=== PATIENT | male | born 1960 | race Caucasian/White ===

== ENCOUNTER 2017-09-22 17:05 | Emergency (ER) | payer OTHER ==
[~2017-09-22] VITALS: Ht 172.7 cm; Wt 75.0 kg
[2017-09-22 17:26] VITALS: BP 189/91; PULSE 83; RESP 18; TEMP 98.4
[2017-09-22] MEDS ORDERED: LOVA10TA PO (18:16)
[2017-09-22] MEDS ORDERED: CARV6.252 PO (18:16)
[2017-09-22] MEDS ORDERED: METF500T PO (18:16)
[2017-09-22] MEDS ORDERED: BUSP15TA PO (18:16)
[2017-09-22] MEDS ORDERED: SERT-129 PO (18:16)
[2017-09-22 18:51] LABS: AUTOMATED NEUTROPHIL # 3.7 TH/MM3 (1.8-7.7); BASOPHIL % 0.5 % (0.0-2.0); EOSINOPHIL # 0.1 TH/MM3 (0-0.4); EOSINOPHIL % 1.7 % (0.0-4.0); HEMATOCRIT 40.6 % (39.0-51.0); HEMOGLOBIN 13.9 GM/DL (13.0-17.0); LYMPH % 26.2 % (9.0-44.0); LYMPHOCYTE # 1.5 TH/MM3 (1.0-4.8); MEAN CELL VOLUME 80.1 FL (80.0-100.0); MEAN CORPUSCULAR HEMOGLOBIN 27.4 PG (27.0-34.0); MEAN CORPUSCULAR HGB CONC 34.1 % (32.0-36.0); MEAN PLATELET VOLUME 7.2 FL (7.0-11.0); MONO % 7.9 % (0.0-8.0); MONOCYTE # 0.5 TH/MM3 (0-0.9); NEUT % 63.7 % (16.0-70.0); PLATELET COUNT 200 TH/MM3 (150-450); RED BLOOD COUNT 5.07 MIL/MM3 (4.50-5.90); RED CELL DISTRIBUTION WIDTH 14.5 % (11.6-17.2); WHITE BLOOD COUNT 5.8 TH/MM3 (4.0-11.0)
--- NOTE | 2017-09-22 18:51 | PD ---
HPI Chief Complaint: Neuro Symptoms/ Deficits Time Seen by Provider: 18:07 Travel History International Travel<30 days: No Contact w/Intl Traveler<30days: No Traveled to known affect area: No History of Present Illness HPI Patient is a 56-year-old male presenting to the emergency department for evaluation of swollen lymph nodes. Patient states his lymph nodes have been swollen all over his body for the last week. He reports feeling nauseous today. He states he went to [facility] in [place] on September 16, he had a CT scan performed and states the embolization material is leaking into his scalp. He believes this is causing his lymph nodes to be enlarged. He denies any fever, chills, chest pain, shortness of breath. Symptom onset was gradual, symptom severity is mild, there are no alleviating factors. Patient appears slightly anxious regarding this issue. PFSH Past Medical History Diabetes: Yes Patient Takes Glucophage: Yes Hypertension: Yes Past Surgical History Cholecystectomy: Yes Neurologic Surgery: Yes (glue on brain) Social History Alcohol Use: No Tobacco Use: No Substance Use: No Allergies-Medications (Allergen,Severity, Reaction): Coded Allergies: No Known Allergies (Unverified , 09/22/17) Reported Meds & Prescriptions Reported Meds & Active Scripts Active Reported Lovastatin 10 Mg Tab Unknown Dose PO DAILY Buspirone (Buspirone HCl) 15 Mg Tab 15 Mg PO BID Sertraline (Sertraline HCl) 100 Mg Tab 100 Mg PO DAILY Carvedilol 6.25 Mg Tab 6.25 Mg PO BID Metformin (Metformin HCl) 500 Mg Tab 500 Mg PO BIDPC Review of Systems Except as stated in HPI: all other systems reviewed are Neg General / Constitutional: No: Fever, Chills HENT: No: Headaches, Neck Pain Cardiovascular: No: Chest Pain or Discomfort Respiratory: No: Shortness of Breath Gastrointestinal: Positive: Nausea, No: Vomiting, Abdominal Pain Skin: Positive Lumps Psychiatric: Positive: Anxiety Physical Exam Narrative GENERAL: Overweight, well-developed, alert male. Presenting in no acute distress. SKIN: Warm and dry. 1 cm palpable lumps to bilateral axilla, no erythema, edema noted. Palpable lump to left groin. HEAD: Atraumatic. Normocephalic. EYES: Pupils equal and round. No scleral icterus. No injection or drainage. ENT: No nasal bleeding or discharge. Mucous membranes pink and moist. NECK: Trachea midline. No JVD. CARDIOVASCULAR: Regular rate and rhythm. RESPIRATORY: No accessory muscle use. Clear to auscultation. Breath sounds equal bilaterally. GASTROINTESTINAL: Abdomen soft, non-tender, nondistended. Hepatic and splenic margins not palpable. MUSCULOSKELETAL: Extremities without clubbing, cyanosis, or edema. No obvious deformities. NEUROLOGICAL: Awake and alert. No obvious cranial nerve deficits. Motor grossly within normal limits. Five out of 5 muscle strength in the arms and legs. Normal speech. PSYCHIATRIC: Appropriate mood and affect; insight and judgment normal. Data Data Last Documented VS Vital Signs Date Time Temp Pulse Resp B/P (MAP) Pulse Ox O2 Delivery O2 Flow Rate FiO2 09/22/17 18:00 80 16 09/22/17 17:26 98.4 189/91 (123) Orders Orders Complete Blood Count With Diff (09/22/17 18:19) Comprehensive Metabolic Panel (09/22/17 18:19) Potassium Chloride (Kcl) (09/22/17 19:15) Labs Laboratory Tests Test 09/22/17 18:40 White Blood Count 5.8 TH/MM3 Red Blood Count 5.07 MIL/MM3 Hemoglobin 13.9 GM/DL Hematocrit 40.6 % Mean Corpuscular Volume 80.1 FL Mean Corpuscular Hemoglobin 27.4 PG Mean Corpuscular Hemoglobin Concent 34.1 % Red Cell Distribution Width 14.5 % Platelet Count 200 TH/MM3 Mean Platelet Volume 7.2 FL Neutrophils (%) (Auto) 63.7 % Lymphocytes (%) (Auto) 26.2 % Monocytes (%) (Auto) 7.9 % Eosinophils (%) (Auto) 1.7 % Basophils (%) (Auto) 0.5 % Neutrophils # (Auto) 3.7 TH/MM3 Lymphocytes # (Auto) 1.5 TH/MM3 Monocytes # (Auto) 0.5 TH/MM3 Eosinophils # (Auto) 0.1 TH/MM3 Basophils # (Auto) 0.0 TH/MM3 CBC Comment DIFF FINAL Differential Comment Blood Urea Nitrogen 8 MG/DL Creatinine 0.96 MG/DL Random Glucose 433 MG/DL Total Protein 7.1 GM/DL Albumin 3.5 GM/DL Calcium Level 8.3 MG/DL Alkaline Phosphatase 85 U/L Aspartate Amino Transf (AST/SGOT) 17 U/L Alanine Aminotransferase (ALT/SGPT) 25 U/L Total Bilirubin 1.1 MG/DL Sodium Level 135 MEQ/L Potassium Level 3.2 MEQ/L Chloride Level 99 MEQ/L Carbon Dioxide Level 26.6 MEQ/L Anion Gap 9 MEQ/L Estimat Glomerular Filtration Rate 82 ML/MIN MDM Medical Decision Making Medical Screen Exam Complete: Yes Emergency Medical Condition: Yes Interpretation(s) Vital Signs Date Time Temp Pulse Resp B/P (MAP) Pulse Ox O2 Delivery O2 Flow Rate FiO2 09/22/17 18:00 80 16 09/22/17 17:26 98.4 83 18 189/91 (123) Differential Diagnosis Lymphadenopathy versus hidradenitis versus anxiety versus other Narrative Course Patient is well-appearing 56-year-old male presenting for evaluation of enlarged lymph nodes. Patient has no signs or symptoms of infection. He was seen and evaluated another facility on September 16, he has an appointment with his primary doctor on Monday. Reviewed CT scan and labs from prior visit. CT angiogram from previous hospital shows postop exam without definite recurrent/ residual intracranial AVM/aVF and/or aneurysm based on limited evaluation. There was noted to have some embolization material lodged within the anterior frontal calvarial diploic space as well as portions of the right frontal and ethmoid sinuses. Some of the embolization material has also extended intracranially into the right extracranial scalp subcutaneous space. Likely explain the protrusion and palpable lump at the right anterior paramedial frontal scalp forehead. There is no other high-grade stenosis, occlusion, thromboembolic disease or aneurysm identified elsewhere throughout the intracranial arterial vasculature. Repeated CBC and chemistry CBC is unremarkable, chemistry with a potassium of 3.2, or replacement ordered. Glucose 433. Physical examination is unremarkable, patient is well-appearing with no focal deficits. He is encouraged to continue following with his primary doctor on Monday as scheduled. Diagnosis Primary Impression: Lymph node enlargement Additional Impression: Skin abnormality Referrals: Primary Care Physician Follow-up on Monday as scheduled Patient Instructions: General Instructions, Lymphadenopathy (ED) Additional Instructions: Follow-up with your primary doctor as scheduled Return to emergency department immediately for any new or worsening symptoms Med/Other Pt SpecificInfo: No Change to Meds Disposition: 01 DISCHARGE HOME Condition: Stable Mee Casas Sep 22, 2017 18:51
[2017-09-22 19:06] LABS: ALBUMIN 3.5 GM/DL (3.4-5.0); AST (GOT) 17 U/L (15-37); BICARBONATE 26.6 MEQ/L (21.0-32.0); BLOOD UREA NITROGEN 8 MG/DL (7-18); CALCIUM 8.3 MG/DL (8.5-10.1); CHLORIDE 99 MEQ/L (98-107); CREATININE 0.96 MG/DL (0.60-1.30); GLOMERULAR FILTRATION RATE 82 ML/MIN (>89); GLUCOSE,RANDOM 433 MG/DL (74-106); SODIUM (NA) 135 MEQ/L (136-145)
[2017-09-22 19:12] LABS: ALKALINE PHOSPHATASE 85 U/L (45-117); ALT (GPT) 25 U/L (12-78); TOTAL BILIRUBIN ADULT 1.1 MG/DL (0.2-1.0); TOTAL PROTEIN 7.1 GM/DL (6.4-8.2)
[2017-09-22] MEDS ORDERED: POTASSIUM CHLORIDE 10 MEQ CONTROLLED RELEASE TAB PO ONE (19:15)
--- NOTE | 2017-09-22 19:27 | PD ---
Physical Exam Date Seen by Provider: Sep 22, 2017 Time Seen by Provider: 19:00 Narrative I, Dr. Aguero, have reviewed the advance practice practitioner's documentation and am in agreement, met with the patient face to face, made the diagnosis, and the medical decision making was done by me. *My assessment and Findings: Patient seen and evaluated with PA, please see PA documentation for further details. 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 He is here because he feels like the area is still swelling and he has been having lymph nodes all over his body and he thinks the tube may be related. He denies any fevers or any other issues. On evaluation, there is no significant tenderness around the eyebrow area where he states he has swelling. There is no palpable tenderness or fluctuance. I do not see significant edema as a matter fact. He has palpable lymphadenopathy on both axilla. He states he has some on the groin as well but declines to let me evaluate. These do not appear to be significantly tender. The rest of the exam is fairly unremarkable. At this point, lab work was done and did not show significant lymphocytosis. There is no significant white count elevation. He denies any new focal neurological deficits. At this point , I think that both issues can be followed up further with his neurosurgeon and primary care doctor. Return for any new issues or worsening of symptoms as needed. The plan was discussed with him and and they state understanding. Data Data Last Documented VS Vital Signs Date Time Temp Pulse Resp B/P (MAP) Pulse Ox O2 Delivery O2 Flow Rate FiO2 09/22/17 18:00 80 16 09/22/17 17:26 98.4 189/91 (123) Orders Orders Complete Blood Count With Diff (09/22/17 18:19) Comprehensive Metabolic Panel (09/22/17 18:19) Potassium Chloride (Kcl) (09/22/17 19:15) Labs Laboratory Tests Test 09/22/17 18:40 White Blood Count 5.8 TH/MM3 Red Blood Count 5.07 MIL/MM3 Hemoglobin 13.9 GM/DL Hematocrit 40.6 % Mean Corpuscular Volume 80.1 FL Mean Corpuscular Hemoglobin 27.4 PG Mean Corpuscular Hemoglobin Concent 34.1 % Red Cell Distribution Width 14.5 % Platelet Count 200 TH/MM3 Mean Platelet Volume 7.2 FL Neutrophils (%) (Auto) 63.7 % Lymphocytes (%) (Auto) 26.2 % Monocytes (%) (Auto) 7.9 % Eosinophils (%) (Auto) 1.7 % Basophils (%) (Auto) 0.5 % Neutrophils # (Auto) 3.7 TH/MM3 Lymphocytes # (Auto) 1.5 TH/MM3 Monocytes # (Auto) 0.5 TH/MM3 Eosinophils # (Auto) 0.1 TH/MM3 Basophils # (Auto) 0.0 TH/MM3 CBC Comment DIFF FINAL Differential Comment Blood Urea Nitrogen 8 MG/DL Creatinine 0.96 MG/DL Random Glucose 433 MG/DL Total Protein 7.1 GM/DL Albumin 3.5 GM/DL Calcium Level 8.3 MG/DL Alkaline Phosphatase 85 U/L Aspartate Amino Transf (AST/SGOT) 17 U/L Alanine Aminotransferase (ALT/SGPT) 25 U/L Total Bilirubin 1.1 MG/DL Sodium Level 135 MEQ/L Potassium Level 3.2 MEQ/L Chloride Level 99 MEQ/L Carbon Dioxide Level 26.6 MEQ/L Anion Gap 9 MEQ/L Estimat Glomerular Filtration Rate 82 ML/MIN [facility] Medical Record Reviewed: Yes Supervised Visit with FIDELIA: Yes Diagnosis Primary Impression: Lymphadenopathy Disposition: 01 DISCHARGE HOME Condition: Stable Bryson Aguero MD Sep 22, 2017 19:27
== END 2017-09-22 19:54 | disposition home or self-care (01) ==
LOC: NEPE 17:05
DX: R59.9 Enlarged lymph nodes, unspecified (principal); E11.9 Type 2 diabetes mellitus without complications; Z79.84 Long term (current) use of oral hypoglycemic drugs
CPT/HCPCS: 80053; 85025; 99283